=== PATIENT | female | born 1945 | race African-American/Black ===

== ENCOUNTER 2017-07-22 04:45 | Inpatient (IN) | payer OTHER, BC ==
[~2017-07-22] VITALS: Ht 152.4 cm; Wt 61.2 kg
--- NOTE | ~2017-07-22 | EKG ---
[address] [place] [address] ELECTROCARDIOGRAM REPORT Name: EPI MONTERO Room #: 170-1 ADM IN M.R.#: [id number] Admission: 07/22/17 Attend Phys: Julio C Amos DO Discharge: Date of : 47 Report #: [id number] THIS REPORT FOR: //name// 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 SORIANO : 1945 Requested By: Willian Castro Order Number: [id number] MD: Seven Kingston Measurements Intervals [place] Rate: 84 P: 62 WI: 148 QRS: -37 QRSD: 95 T: 60 QT: 415 QTc: 491 Interpretive Statements Sinus rhythm Ventricular premature complex Left atrial enlargement Left ventricular hypertrophy Inferior infarct, old Prolonged QT interval Compared to ECG 06/27/1997 09:13:00 Ventricular premature complex(es) now present Electronically Signed On 07-22-2017 8:42:38 CDT by Seven Kingston [email or web address] <ELECTRONICALLY SIGNED> By: Seven Kingston MD, [facility] 07/22/17 0842 0522 0522 Seven Kingston MD, [facility] /EPI
[2017-07-22 04:53] VITALS: BP 197/90
[2017-07-22] MEDS ORDERED: NORVASC5 MG PO (05:47)
[2017-07-22] MEDS ORDERED: PRAVACHOL40 MG PO (05:47)
[2017-07-22] MEDS ORDERED: GLIPIZIDE 10 MG10 MG PO (05:48)
[2017-07-22] MEDS ORDERED: NEPHROCAPS SOFT1 CAP PO (05:48)
[2017-07-22] MEDS ORDERED: ASPIRIN325 PO (05:48)
[2017-07-22] MEDS ORDERED: CARVEDILOL12.5 MG PO (05:49)
[2017-07-22] MEDS ORDERED: LISINOPRIL20 MG PO (05:49)
[2017-07-22] MEDS ORDERED: METFORMIN HCL500 MG PO (05:50)
[2017-07-22 05:52] LABS: URINE BILIRUBIN NEGATIVE (Negative); URINE BLOOD TRACE (Negative); URINE CLARITY SL CLOUDY; URINE COLOR YELLOW; URINE GLUCOSE-RANDOM* 3+ (Negative); URINE KETONES 1+ (Negative); URINE LEUKOCYTES-REFLEX NEGATIVE (Negative); URINE NITRITE-REFLEX NEGATIVE (Negative); URINE PROTEIN (DIPSTICK) 3+ (Negative); URINE SPECIFIC GRAVITY >= 1.030 (1.005-1.035); URINE UROBILINOGEN 0.2 E.U./dl (0.2-1.0)
[2017-07-22 06:02] LABS: AMORPHOUS URATES Moderate /LPF (None Seen); HYALINE CASTS 0-3 Few /LPF (None Seen)
[2017-07-22 06:03] LABS: BACTERIA-REFLEX 1-9 Few /HPF (None Seen); SQUAMOUS 0-3 Few /LPF (0-3); URINE RBC 3-10 Few /HPF (0-2); URINE WBC-REFLEX 0-5 Rare /HPF (0-5)
[2017-07-22 06:10] LABS: ABSOLUTE NEUTROPHILS 10.3 thou/uL (1.4-8.2); BASOPHILS 0.5 % (0.0-2.0); EOSINOPHILS 0.3 % (0.0-3.0); HEMATOCRIT 47.4 % (37.0-47.0); HEMOGLOBIN 15.8 gm/dL (12.0-15.0); LYMPHOCYTES 11.1 % (24.0-44.0); MCH 28.7 pg (26.0-34.0); MCHC 33.3 g/dL (28.0-37.0); MCV 86.3 fL (80.0-100.0); MONOCYTES 1.7 % (1.0-8.0); PLATELET COUNT 390 thou/uL (150-400); POLYS 86.4 % (36.0-66.0); RBC 5.49 mil/uL (4.20-5.00); RDW 14.8 % (10.5-14.5); WBC 11.9 thou/uL (4.0-11.0)
[2017-07-22 06:21] LABS: ANION GAP 10 mmol/L (7-16); BUN 19 mg/dL (7-18); CALCIUM 9.6 mg/dL (8.5-10.1); CHLORIDE 102 mmol/L (98-107); CO2 26 mmol/L (21-32); CREATININE 0.9 mg/dL (0.6-1.0); GLUCOSE 270 mg/dL (74-106); POTASSIUM 3.9 mmol/L (3.5-5.1); SODIUM 138 mmol/L (136-145)
[2017-07-22 06:30] LABS: ALBUMIN 3.3 g/dL (3.4-5.0); LIPASE 166 U/L (73-393); MAGNESIUM 1.6 mg/dL (1.8-2.4); SGOT 18 U/L (15-37); SGPT 25 U/L (30-65); TOTAL BILIRUBIN 0.3 mg/dL (<0.1-1.0); TOTAL PROTEIN 7.2 g/dL (6.4-8.2); TROPONIN-I < 0.04 ng/mL (<0.06)
[2017-07-22 07:34] VITALS: BP 183/86
[2017-07-22 08:57] VITALS: BP 163/84
[2017-07-22 10:09] VITALS: BP 169/74
[2017-07-22 16:26] VITALS: BP 197/76
[2017-07-22 19:44] VITALS: BP 178/90
[2017-07-23 04:18] VITALS: BP 159/76
[2017-07-23 08:29] VITALS: BP 178/53
[2017-07-23 15:46] VITALS: BP 136/61
[2017-07-23 20:39] VITALS: BP 138/53
[2017-07-24 04:21] VITALS: BP 177/80
[2017-07-24 08:08] VITALS: BP 167/74
[2017-07-24] MEDS ORDERED: KEFLEX500 M1 PO (08:30)
[2017-07-24 10:14] VITALS: BP 167/74
== END 2017-07-24 11:52 | disposition home or self-care (01) | DRG 690 ==
LOC: ER 04:45 → EROBS 07:15 → 4W 07:15
PROVIDERS: Emergency Medicine
DX: N39.0 Urinary tract infection, site not specified (principal); I10 Essential (primary) hypertension; I16.0 Hypertensive urgency; E11.65 Type 2 diabetes mellitus with hyperglycemia; K80.20 Calculus of gallbladder without cholecystitis without obstruction; F17.210 Nicotine dependence, cigarettes, uncomplicated; Z79.82 Long term (current) use of aspirin; Z79.84 Long term (current) use of oral hypoglycemic drugs; Z79.899 Other long term (current) drug therapy
CPT/HCPCS: 10045

== ENCOUNTER 2018-01-22 16:43 | Inpatient (IN) | payer OTHER, BC ==
[~2018-01-22] VITALS: Ht 152.4 cm; Wt 55.0 kg
--- NOTE | ~2018-01-22 | EKG ---
[address] [place] [address] ELECTROCARDIOGRAM REPORT Name: EPI MONTERO Room #: 170-1 ADM [place] M.R.#: [id number] Admission: 01/22/18 Attend Phys: Rosalio Fletcher MD Discharge: Date of : 47 Report #: [id number] THIS REPORT FOR: //name// [facility] ED Test Date: 2018-01-22 Test Time: 18:32:46 Pat Name: EPI MONTERO Department: Room: 170 Gender: F Front Desk Host: massimo : 1945 Requested By: Willian Castro Order Number: [id number] MD: Seven Kingston Measurements Intervals [place] Rate: 64 P: 37 [place]: 145 QRS: -40 QRSD: 99 T: 76 QT: 441 QTc: 455 Interpretive Statements Sinus rhythm Inferior infarct, old Compared to ECG 07/22/2017 05:22:53 Ventricular premature complex(es) no longer present Electronically Signed On 01-23-2018 9:24:02 CDT by Seven Kingston [email or web address] <ELECTRONICALLY SIGNED> By: Seven Kingston MD, [facility] 01/23/18 0924 31 31 Seven Kingston MD, [facility] /EPI
--- NOTE | ~2018-01-22 | 2DMMODE ---
[facility] [address] [place] [address] 2 D/M-MODE ECHOCARDIOGRAM Name: EPI MONTERO Room #: 463-P ADM IN M.R.#: [id number] Admission: 01/22/18 Attend Phys: Rosalio Fletcher MD Discharge: Date of : 47 Date of Service: 01/24/18 1554 Report #: [id number] THIS REPORT FOR: //name// APPROVED REPORT Study performed: 01/24/2018 14:31:35 EXAM: Comprehensive 2D, Doppler, and color-flow Echocardiogram Patient Location: Bedside Room #: 463 Status: routine BSA: 1.50 HR: 66 bpm BP: 188/102 mmHg Rhythm: NSR Other Information Study Quality: Adequate Indications Weakness/fall/near syncope. Hx: HTN, tob, DM 2D Dimensions RVDd: 28.69 mm IVSd: 10.48 (7-11mm) LVOT Diam: 20.16 (18-24mm) LVDd: 39.16 mm PWd: 8.65 (7-11mm) LVDs: 24.78 (25-40mm) Aortic Root: 32.73 mm Volumes Left Atrial Volume (Systole) Single Plane 4CH: 23.51 mL Single Plane 2CH: 28.81 mL LA ESV Index: 21.00 mL/m2 Aortic Valve AoV Peak Mansoor.: 1.00 m/s AO Peak Gr.: 4.03 mmHg LVOT Max P.38 mmHg LVOT Max V: 0.92 m/s MOLINA Vmax: 2.92 cm2 Mitral Valve E/A Ratio: 0.6 MV Decel. Time: 279.53 ms MV E Max Mansoor.: 0.82 m/s [facility] [place] [address] 2 D/M-MODE ECHOCARDIOGRAM Name: [facility] Room #: 463- ADM IN M.R.#: [id number] Admission: 01/22/18 Attend Phys: Rosalio Fletcher MD Discharge: Date of : 47 Date of Service: 01/24/18 1554 Report #: [id number] MV A Mansoor.: 1.36 m/s MV PHT: 81.06 ms IVRT: 73.82 ms Pulmonary Valve PV Peak Mansoor.: 0.85 m/s PV Peak Gr.: 2.91 mmHg Pulmonary Vein P Vein S: 0.60 m/s P Vein A: 0.31 m/s P Vein D: 0.28 m/s P Vein A Dur.: 87.7 msec P Vein S/D Ratio: 2.14 Tricuspid Valve TR Peak Mansoor.: 2.79 m/s RAP Estimate: 5.00 mmHg TR Peak Gr.: 31.15 mmHg PA Pressure: 35.00 mmHg Left Ventricle The left ventricle is normal size. There is normal LV segmental wall motion. Moderate basal septal hypertrophy is present. Left ventricular systolic function is normal. LVEF is 60-65%. Mild diastolic dysfunction is present (impaired relaxation pattern). Right Ventricle The right ventricle is normal size. The right ventricular systolic function is normal. Atria The left atrium size is normal. The right atrium size is normal. Aortic Valve Aortic valve leaflets are mildly thickened and calcified. No aortic regurgitation is present. There is no aortic valvular stenosis. Mitral Valve The mitral valve is normal in structure. Mild mitral annular calcification. There is no mitral valve regurgitation noted. No evidence of mitral valve stenosis. Tricuspid Valve The tricuspid valve is normal in structure. Mild tricuspid regurgitation. Estimated PAP is 35mmHg. [facility] [address] [place] [address] 2 D/M-MODE ECHOCARDIOGRAM Name: [facility] Room #: 463-P [facility] IN .R.#: [id number] Admission: 01/22/18 Attend Phys: Rosalio Fletcher MD Discharge: Date of : 47 Date of Service: 01/24/18 1554 Report #: [id number] Pulmonic Valve The pulmonary valve is normal in structure. Trace pulmonic regurgitation. Great Vessels The aortic root is normal in size. Ascending aorta is not well visualized. IVC is normal in size and collapses >50% with inspiration. Pericardium There is no pericardial effusion. <Conclusion> The left ventricle is normal size. LVEF is 60-65%. Aortic valve leaflets are mildly thickened and calcified. The mitral valve is normal in structure. Mild mitral annular calcification. The tricuspid valve is normal in structure. Mild tricuspid regurgitation. Estimated PAP is 35mmHg. The pulmonary valve is normal in structure. Trace pulmonic regurgitation. Ascending aorta is not well visualized. There is no pericardial effusion. <ELECTRONICALLY SIGNED> By: Yosi Morris MD 01/24/18 1554 1554 1554 Yosi Morris MD /INF
[~2018-01-22 16:43] MED LIST: ASPIRIN325 PO; CARVEDILOL12.5 MG PO; GLIPIZIDE 10 MG10 MG PO; KEFLEX500 M1 PO; LISINOPRIL20 MG PO; METFORMIN HCL500 MG PO; NEPHROCAPS SOFT1 CAP PO; NORVASC5 MG PO; PRAVACHOL40 MG PO
[2018-01-22 16:44] VITALS: BP 191/92
[2018-01-22 17:40] LABS: ABSOLUTE NEUTROPHILS 4.9 thou/uL (1.4-8.2); BASOPHILS 2.3 % (0.0-2.0); EOSINOPHILS 1.5 % (0.0-3.0); HEMATOCRIT 42.8 % (37.0-47.0); HEMOGLOBIN 14.4 gm/dL (12.0-15.0); LYMPHOCYTES 34.7 % (24.0-44.0); MCH 28.9 pg (26.0-34.0); MCHC 33.7 g/dL (28.0-37.0); MCV 85.9 fL (80.0-100.0); MONOCYTES 5.4 % (1.0-8.0); PLATELET COUNT 464 thou/uL (150-400); POLYS 56.1 % (36.0-66.0); RBC 4.98 mil/uL (4.20-5.00); RDW 14.5 % (10.5-14.5); WBC 8.8 thou/uL (4.0-11.0)
[2018-01-22 17:50] LABS: ANION GAP 8 mmol/L (7-16); BUN 16 mg/dL (7-18); CALCIUM 9.6 mg/dL (8.5-10.1); CHLORIDE 105 mmol/L (98-107); CO2 25 mmol/L (21-32); CREATININE 0.9 mg/dL (0.6-1.0); GLUCOSE 185 mg/dL (74-106); POTASSIUM 4.6 mmol/L (3.5-5.1); SODIUM 138 mmol/L (136-145)
[2018-01-22 17:58] LABS: ALBUMIN 3.1 g/dL (3.4-5.0); SGOT 13 U/L (15-37); SGPT 22 U/L (30-65); TOTAL BILIRUBIN 0.3 mg/dL (<0.1-1.0); TOTAL PROTEIN 6.9 g/dL (6.4-8.2); TROPONIN-I <0.06 ng/mL (<0.06)
[2018-01-22 19:21] LABS: URINE BILIRUBIN NEGATIVE (Negative); URINE BLOOD NEGATIVE (Negative); URINE CLARITY CLEAR; URINE COLOR YELLOW; URINE GLUCOSE-RANDOM* TRACE (Negative); URINE KETONES NEGATIVE (Negative); URINE LEUKOCYTES-REFLEX NEGATIVE (Negative); URINE NITRITE-REFLEX NEGATIVE (Negative); URINE PROTEIN (DIPSTICK) 2+ (Negative); URINE SPECIFIC GRAVITY >= 1.030 (1.005-1.035); URINE UROBILINOGEN 0.2 E.U./dl (0.2-1.0)
[2018-01-22 19:47] LABS: SQUAMOUS 0-3 Few /LPF (0-3)
[2018-01-22 19:48] LABS: BACTERIA-REFLEX None Seen /HPF (None Seen); CASTS None Seen /LPF (None Seen); CRYSTALS None Seen /LPF (None Seen); URINE RBC 0-2 Rare /HPF (0-2); URINE WBC-REFLEX 0-5 Rare /HPF (0-5)
[2018-01-22] MEDS ORDERED: ALPHAGAN P5 ML OPHTHALMIC (21:40)
[2018-01-22] MEDS ORDERED: ARICEPT 5 MG TAB5 MG PO (21:40)
[2018-01-22] MEDS ORDERED: REFRESH CLASSI1 EACH OPHTHALMIC (21:41)
[2018-01-22] MEDS ORDERED: FENOFIBRATE160 MG PO (21:42)
[2018-01-23 02:08] VITALS: BP 169/69
[2018-01-23 02:09] VITALS: BP 167/68; BP 169/69
[2018-01-23 03:00] VITALS: BP 184/76
[2018-01-23 04:56] LABS: ANION GAP 10 mmol/L (7-16); BUN 16 mg/dL (7-18); CALCIUM 9.3 mg/dL (8.5-10.1); CHLORIDE 105 mmol/L (98-107); CHOLESTEROL 208 mg/dL (<200); CO2 23 mmol/L (21-32); CREATININE 0.8 mg/dL (0.6-1.0); GLUCOSE 203 mg/dL (74-106); HDL CHOLESTEROL 58 mg/dL (>40); LDL CHOLESTEROL 132 mg/dL (<100); POTASSIUM 4.1 mmol/L (3.5-5.1); SODIUM 138 mmol/L (136-145); TC:HDL 3.6 Ratio (Not establshd); TRIGLYCERIDE 90 mg/dL (<150); VLDL 18 mg/dL (<40)
[2018-01-23 05:01] LABS: SERUM ASSESSMENT Clear
[2018-01-23 08:00] VITALS: BP 170/73
[2018-01-23 15:35] VITALS: BP 179/81
[2018-01-23 19:52] VITALS: BP 149/53
[2018-01-23 23:09] LABS: GLYCOHEMOGLOBIN (HGB A1C) 9.6 % (4.8-5.6)
[2018-01-24 05:01] VITALS: BP 153/122
[2018-01-24 08:22] VITALS: BP 189/102
[2018-01-24 17:17] VITALS: BP 180/82
[2018-01-25 03:56] VITALS: BP 151/73
[2018-01-25 06:08] LABS: ABSOLUTE NEUTROPHILS 5.4 thou/uL (1.4-8.2); BASOPHILS 0.3 % (0.0-2.0); EOSINOPHILS 2.4 % (0.0-3.0); HEMATOCRIT 41.4 % (37.0-47.0); HEMOGLOBIN 14.2 gm/dL (12.0-15.0); LYMPHOCYTES 29.9 % (24.0-44.0); MCH 29.2 pg (26.0-34.0); MCHC 34.3 g/dL (28.0-37.0); MCV 84.9 fL (80.0-100.0); MONOCYTES 7.7 % (1.0-8.0); PLATELET COUNT 458 thou/uL (150-400); POLYS 59.7 % (36.0-66.0); RBC 4.87 mil/uL (4.20-5.00); RDW 14.4 % (10.5-14.5); WBC 9.1 thou/uL (4.0-11.0)
[2018-01-25 06:12] LABS: CALCIUM 8.9 mg/dL (8.5-10.1); POTASSIUM 4.2 mmol/L (3.5-5.1)
[2018-01-25 07:45] VITALS: BP 149/77
[2018-01-25 16:00] VITALS: BP 161/80
[2018-01-25 19:38] VITALS: BP 167/75
[2018-01-26 04:17] VITALS: BP 184/90
[2018-01-26 05:04] LABS: ABSOLUTE NEUTROPHILS 5.5 thou/uL (1.4-8.2); BASOPHILS 0.9 % (0.0-2.0); EOSINOPHILS 4.4 % (0.0-3.0); HEMOGLOBIN 14.1 gm/dL (12.0-15.0); LYMPHOCYTES 32.4 % (24.0-44.0); MCH 28.5 pg (26.0-34.0); MCHC 32.8 g/dL (28.0-37.0); MONOCYTES 6.1 % (1.0-8.0); PLATELET COUNT 329 thou/uL (150-400); POLYS 56.2 % (36.0-66.0); RBC 4.94 mil/uL (4.20-5.00); RDW 14.5 % (10.5-14.5); WBC 9.7 thou/uL (4.0-11.0)
[2018-01-26 05:19] LABS: CALCIUM 9.2 mg/dL (8.5-10.1); CREATININE 0.8 mg/dL (0.6-1.0); POTASSIUM 4.4 mmol/L (3.5-5.1)
[2018-01-26 07:45] VITALS: BP 197/73
[2018-01-26 16:22] VITALS: BP 127/71
[2018-01-26 20:06] VITALS: BP 144/71
[2018-01-27 04:06] VITALS: BP 140/68
[2018-01-27 08:10] VITALS: BP 177/80
[2018-01-27 10:54] VITALS: BP 146/51
[2018-01-27 14:14] LABS: URINE BILIRUBIN NEGATIVE (Negative); URINE BLOOD NEGATIVE (Negative); URINE CLARITY CLEAR; URINE COLOR YELLOW; URINE GLUCOSE-RANDOM* TRACE (Negative); URINE KETONES NEGATIVE (Negative); URINE LEUKOCYTES-REFLEX NEGATIVE (Negative); URINE NITRITE-REFLEX NEGATIVE (Negative); URINE PROTEIN (DIPSTICK) 2+ (Negative); URINE SPECIFIC GRAVITY 1.025 (1.005-1.035)
[2018-01-27 14:22] LABS: CASTS None Seen /LPF (None Seen); SQUAMOUS 4-10 Moderate /LPF (0-3)
[2018-01-27 14:23] LABS: CRYSTALS None Seen /LPF (None Seen); URINE RBC None Seen /HPF (0-2); URINE WBC-REFLEX 0-5 Rare /HPF (0-5)
[2018-01-27 14:24] LABS: BACTERIA-REFLEX 1-9 Few /HPF (None Seen)
[2018-01-27 14:45] VITALS: BP 132/67
[2018-01-27 15:11] LABS: ABSOLUTE NEUTROPHILS 6.7 thou/uL (1.4-8.2); BASOPHILS 1.1 % (0.0-2.0); EOSINOPHILS 5.3 % (0.0-3.0); HEMATOCRIT 42.6 % (37.0-47.0); HEMOGLOBIN 14.2 gm/dL (12.0-15.0); LYMPHOCYTES 31.8 % (24.0-44.0); MCH 28.8 pg (26.0-34.0); MCHC 33.3 g/dL (28.0-37.0); MCV 86.5 fL (80.0-100.0); MONOCYTES 6.3 % (1.0-8.0); POLYS 55.5 % (36.0-66.0); RBC 4.92 mil/uL (4.20-5.00); RDW 14.3 % (10.5-14.5); WBC 13.4 thou/uL (4.0-11.0)
[2018-01-27 15:51] LABS: PLATELET COUNT 337 thou/uL (150-400)
== END 2018-01-27 19:12 | DRG 65 ==
LOC: ER 16:43 → EROBS 19:59 → 4W 19:59 → EROBS 19:59 → 4W 01-23 15:13
PROVIDERS: Emergency Medicine; Hospitalist; Nurse Practitioner Family
DX: I63.9 Cerebral infarction, unspecified (principal); F01.51 Vascular dementia, unspecified severity, with behavioral disturbance; R45.1 Restlessness and agitation; I10 Essential (primary) hypertension; E11.9 Type 2 diabetes mellitus without complications; E78.5 Hyperlipidemia, unspecified; F17.210 Nicotine dependence, cigarettes, uncomplicated; Z60.2 Problems related to living alone; M62.84 Sarcopenia; R41.0 Disorientation, unspecified; E83.42 Hypomagnesemia; Z28.21 Immunization not carried out because of patient refusal; Z88.8 Allergy status to other drugs, medicaments and biological substances; Z71.6 Tobacco abuse counseling; Z79.82 Long term (current) use of aspirin; Z79.899 Other long term (current) drug therapy
CPT/HCPCS: 10045

== ENCOUNTER 2019-01-10 09:22 | Inpatient (IN) | payer OTHER, BC ==
[~2019-01-10] VITALS: Ht 154.9 cm; Wt 48.1 kg
[~2019-01-10 09:22] MED LIST changes: +ALPHAGAN P5 ML OPHTHALMIC; +ARICEPT 5 MG TAB5 MG PO; +FENOFIBRATE160 MG PO; +REFRESH CLASSI1 EACH OPHTHALMIC
[2019-01-10 09:23] VITALS: BP 118/73
[2019-01-10 10:30] LABS: HEMATOCRIT 39.1 % (37.0-47.0); HEMOGLOBIN 12.7 gm/dL (12.0-15.0); MCH 26.9 pg (26.0-34.0); MCHC 32.4 g/dL (28.0-37.0); MCV 83.1 fL (80.0-100.0); RBC 4.71 mil/uL (4.20-5.00); RDW 15.1 % (10.5-14.5)
[2019-01-10 10:40] LABS: ANION GAP 10 mmol/L (7-16); BUN 34 mg/dL (7-18); CALCIUM 9.9 mg/dL (8.5-10.1); CHLORIDE 99 mmol/L (98-107); CO2 28 mmol/L (21-32); CREATININE 1.2 mg/dL (0.6-1.0); GLUCOSE 373 mg/dL (74-106); SODIUM 137 mmol/L (136-145)
[2019-01-10 10:48] LABS: TROPONIN-I <0.06 ng/mL (<0.06)
[2019-01-10 10:49] LABS: URINE BILIRUBIN NEGATIVE (Negative); URINE BLOOD NEGATIVE (Negative); URINE CLARITY CLEAR; URINE COLOR YELLOW; URINE GLUCOSE-RANDOM* 3+ (Negative); URINE KETONES NEGATIVE (Negative); URINE LEUKOCYTES-REFLEX NEGATIVE (Negative); URINE NITRITE-REFLEX NEGATIVE (Negative); URINE PROTEIN (DIPSTICK) NEGATIVE (Negative); URINE SPECIFIC GRAVITY 1.015 (1.005-1.035); URINE UROBILINOGEN 0.2 E.U./dl (0.2-1.0)
[2019-01-10 13:35] VITALS: BP 131/62
[2019-01-10 14:23] LABS: FOLIC ACID 9.5 ng/mL (8.6-58.9); TSH 0.671 uIU/mL (0.358-3.740)
--- NOTE | 2019-01-10 17:03 | NUR ---
ASSUMMED PT CARE AT APPROXIMATELY 1500. PT AWAKE AND ORIENTED X3. PT C HX OF DEMENTIA. PT DENIES HAVING CHEST PAIN. PT DENIES HAVING SOB. PT IS UNSTEADY WHEN STANDING UP AND IN BED SITTING UP. ADMISSION COMPLETE. PT ARRIVED TO UNIT WITHOUT FRIEND OR SPOUSE. PT EDUCATED ABOUT POC. PT STATED UNDERSTANDING AND DENIED HAVING FURTHER QUESTIONS. VITAL SIGNS STABLE. BLOOD SUGARS STABLE. PT COMFORTABLE IN BED. FALL PRECAUTIONS IN PLACE. ASSESSMENT CHARTED. PT DENIES HAVING FURTHER CONCERNS.
[2019-01-10 19:45] VITALS: BP 120/73
[2019-01-10 23:10] LABS: GLYCOHEMOGLOBIN (HGB A1C) 12.1 % (4.8-5.6)
[2019-01-11 04:28] VITALS: BP 156/78
[2019-01-11 04:37] VITALS: BP 120/71
[2019-01-11 05:37] LABS: ABSOLUTE NEUTROPHILS 7.7 thou/uL (1.4-8.2); BASOPHILS 0.2 % (0.0-2.0); EOSINOPHILS 1.1 % (0.0-3.0); HEMATOCRIT 32.7 % (37.0-47.0); LYMPHOCYTES 23.1 % (24.0-44.0); MCH 26.7 pg (26.0-34.0); MCHC 32.3 g/dL (28.0-37.0); MCV 82.6 fL (80.0-100.0); MONOCYTES 5.5 % (1.0-8.0); PLATELET COUNT 477 thou/uL (150-400); POLYS 70.1 % (36.0-66.0); RBC 3.96 mil/uL (4.20-5.00); RDW 14.4 % (10.5-14.5)
[2019-01-11 05:52] LABS: CALCIUM 8.4 mg/dL (8.5-10.1); CREATININE 0.9 mg/dL (0.6-1.0); MAGNESIUM 1.4 mg/dL (1.8-2.4); POTASSIUM 3.2 mmol/L (3.5-5.1)
[2019-01-11 05:56] LABS: HEMOGLOBIN 10.6 gm/dL (12.0-15.0)
[2019-01-11 07:49] VITALS: BP 146/73
--- NOTE | 2019-01-11 08:21 | NUR ---
ASSUME CARE 1900. PT/VITALS STABLE. INTERMITTENT BACK AD RIGHT KNEE PAIN. PT IS VERY CONFUSED AND FREQUENTLY TEARFUL.A/O TO PERSON ONLY. NO REST NOTED TONIGHT FREQUENT CHECKS ON PATIENT. PLAN IS FOR ENDO TO MONITOR BLOOD SUGAR LEVELS, AND SW FOR DISCHARGE PLANNING. WILL CONTINUE TO MONITOR AND FOLLOW WITH POC
--- NOTE | 2019-01-11 09:12 | EKG ---
[address] [place] [address] ELECTROCARDIOGRAM REPORT Name: EPI MONTERO Room #: 217-P ADM IN M.R.#: [id number] Admission: 01/10/19 Attend Phys: Guanakito Abel MD Discharge: Date of : 47 Report #: [id number] THIS REPORT FOR: //name// [facility] ED Test Date: 2019-01-10 Test Time: 10:27:51 Pat Name: EPI MONTERO Department: Room: 217 Gender: F Towerman: JOELLE : 1945 Requested By: Chance Gomez Order Number: [id number] MD: Seven Kingston Measurements Intervals [place] Rate: 61 P: 65 MT: 162 QRS: 0 QRSD: 114 T: 94 QT: 436 QTc: 440 Interpretive Statements Sinus rhythm Ventricular premature complex Inferior infarct, old Compared to ECG 01/22/2018 18:32:46 Ventricular premature complex(es) now present Electronically Signed On 01-11-2019 9:12:28 CDT by Seven Kingston [email or web address] <ELECTRONICALLY SIGNED> By: Seven Kingston MD, [facility] 01/11/19 0912 1027 102 Seven Kingston MD, [facility] /EPI
[2019-01-11 11:10] VITALS: BP 131/45
--- NOTE | 2019-01-11 12:07 | NUR ---
Met with patient with patient who has some confusion. She reports she lives at home with Mario who is s/o for many years. She reports mario also under the weather. She reports uses a walker for ambulation and multiple steps in home. Her PCP is Dr DELGADO. She reports Mario is the cdl driver. Patient appears disheveled with overgrown nails. Discussed likely need for post acute care and patient reports she has been at [facility] in past and agreeable to referral. Called Marios cell phone. On home phone cannot leave a message.
--- NOTE | 2019-01-11 13:53 | NUR ---
FAXED REFERRAL TO [facility] SPOKE WITH KESHIA IN ADM SHE RECEIVED REFERRAL AND WILL REVIEW. DP TO FOLLOW.
--- NOTE | 2019-01-11 15:17 | NUR ---
have called s/o Bj rodriguez twice today.
[2019-01-11 17:11] VITALS: BP 135/55
--- NOTE | 2019-01-11 19:01 | NUR ---
RECEIVED PT'S CARE AROUND 0735; PT. ON BED; ALERT TO PERSON; CONFUSED; CHECK CHARTING; EXPLAINED IN THE HOSPITAL; CRYING; EXPLAINED REASONS IN THE HOSPITAL; DURING ASSESSMENT C/O BACK PAIN; PRN PAIN MEDICATION GIVEN; RE-ASSESSMENT PT. SLEEPING; EARLY ON THE EVENING PT. IRRITABLE; UNCOOPERATIVE; REFUSED EVENING MEDICATIONS; SHOUT "I DO NOT WANT ANY MEDICATION"; "DO NOT GIVE ME ANY MEDICATION"; REFUSED DINNER; MONITORING; ASSESSMENT CHARGED; FOLLOWING POC; WILL PASS ON REPORT.
[2019-01-11 22:05] VITALS: BP 161/84
[2019-01-12 04:55] VITALS: BP 141/58
[2019-01-12 06:07] LABS: HEMATOCRIT 30.3 % (37.0-47.0); HEMOGLOBIN 9.9 gm/dL (12.0-15.0); MCH 26.8 pg (26.0-34.0); MCHC 32.8 g/dL (28.0-37.0); MCV 81.9 fL (80.0-100.0); RBC 3.69 mil/uL (4.20-5.00); RDW 14.8 % (10.5-14.5); WBC 9.2 thou/uL (4.0-11.0)
[2019-01-12 06:13] LABS: CALCIUM 8.6 mg/dL (8.5-10.1); CREATININE 0.8 mg/dL (0.6-1.0); POTASSIUM 3.1 mmol/L (3.5-5.1)
--- NOTE | 2019-01-12 07:07 | HC ---
[facility] [place] [address] [place] [address] CONSULTATION Name: MONTEROEPI Room #: 217-P [facility] IN M.R.#: [id number] Admission: 01/10/19 Attend Phys: Guanakito Abel MD Discharge: Date of : 47 Report #: [id number] THIS REPORT FOR: //name// CC: Brett Abel DATE OF SERVICE: 01/11/2019 ENDOCRINE CONSULTATION NOTE CONSULTING PHYSICIAN: Dr. Abel. REASON FOR CONSULTATION: Uncontrolled type 2 diabetes mellitus. HISTORY OF PRESENT ILLNESS: This is a 73-year-old female patient with a past medical background is known for type 2 diabetes mellitus, hypertension, hyperlipidemia as well as dementia. It appears that the patient was brought into [facility]'s ED by a friend who was concerned about her inability to care for herself as well as reports of frequent falls. When I asked the patient who was alone in her room today about her history of diabetes, she was rather sketchy. She was not sure how long she had diabetes for, she could not specify what specific or what antidiabetic medicines she was on at home. When asked about blood sugar monitoring, she said that she did try for a while, but then did not and was not able to provide specific blood glucose data as well. However, does not seem that she has issues with hypoglycemia. The patient denied having dealt with problems of diabetic retinopathy, nephropathy or neuropathy in the past. Having reviewed the patient's chart and she had metformin 500 mg b.i.d. listed as one of her medications. Also, the patient is known to have hypertension and hyperlipidemia and therapy with pravastatin, amlodipine, carvedilol and lisinopril as well as fenofibrate. REVIEW OF SYSTEMS: CONSTITUTIONAL: The patient admits to having been a bit fatigued, tired, but with poor appetite, but denies significant body weight changes. HEENT: Negative for sore throat, ear pain or ear drainage. PULMONARY: Occasional shortness of breath and cough, but no hemoptysis. CARDIAC: Negative for chest pain, palpitations, syncope or presyncope. GASTROINTESTINAL: Noted for occasional abdominal discomfort, occasional nausea, but no vomiting or hematemesis. NEUROLOGY: The patient describes bouts of lightheadedness and dizziness, but not colten syncope, she alluded to the fact that she had lost her balance a few times. PSYCHIATRY: She denies depression, agitation or anxiety. [address] [address] CONSULTATION Name: [facility] Room #: 217-P [facility] IN ..#: [id number] Admission: 01/10/19 Attend Phys: Guanakito Abel MD Discharge: Date of : 47 Report #: [id number] SKIN: No rash, ulceration, or other major abnormalities. Otherwise, review of systems noncontributory other than those mentioned in HPI. PAST MEDICAL HISTORY: 1. Type 2 diabetes mellitus. 2. Hypertension. 3. Hyperlipidemia. 4. Dementia. 5. Frequent falls. ALLERGIES: STATINS ARE LISTED ALLERGY. REPORTED OUTPATIENT MEDICATIONS: Pravastatin 20 mg daily, amlodipine 10 mg daily, aspirin 325 mg daily, carvedilol 12.5 mg b.i.d., metformin 500 mg b.i.d., lisinopril 40 mg daily, Aricept 5 mg daily, Alphagan 10 mL ophthalmic b.i.d., fenofibrate 160 mg daily. FAMILY HISTORY: Noncontributory. SOCIAL HISTORY: The patient is an active daily smoker. Denies use of alcohol or illicit drugs. PHYSICAL EXAMINATION: GENERAL: This is an elderly -Maltese female patient who is not in apparent pain or distress. She seems comfortable, not in pain or distress. VITAL SIGNS: Blood pressure is 146/73 mmHg, heart rate is 72 beats per minute, respirations 16 per minute, temperature 36.9 degrees. CONSTITUTIONAL: She appears comfortable, not in apparent distress. HEENT: Anicteric sclerae. Intact extraocular motions. NECK: Supple, without JVD, carotid bruits or lymphadenopathy. I do not appreciate thyromegaly. CHEST: Noted for moderate air entry bilaterally. No crackles or wheezes. HEART: Regular rate and rhythm without murmurs or gallops. ABDOMEN: Soft and lax without tenderness or organomegaly. She has active bowel sounds. EXTREMITIES: Lower extremity exam is negative for ankle edema. No skin breaks, ulcerations or other deformities. NEUROLOGIC: Awake, alert and with a broadly nonfocal exam. PSYCHIATRIC: Pleasant, comfortable, not agitated, seems to have a normal mood and affect. SKIN: Negative for ulceration, rashes or discolorations or other major findings. LABORATORY DATA: Blood glucose has consistently run over 240 mg/dL. Otherwise, sodium is 136, potassium 3.2, chloride 102, CO2 of 24, anion gap 10, BUN 20, creatinine 0.9, glucose 271. AST 13, lipase 166, calcium 8.4, magnesium 1.4, [facility] [address] [place] [address] CONSULTATION Name: EPI MONTERO Room #: 217-P ADM IN Naz.#: [id number] Admission: 01/10/19 Attend Phys: Guanakito Abel MD Discharge: Date of : 47 Report #: [id number] alkaline phosphatase 96, ALT 22, total protein 6.9, albumin 3.1, GFR 75. Troponin is undetectable. Total cholesterol 208, triglycerides 90, HDL 58, LDL 132. White blood count 11, hemoglobin 10.6, hematocrit 32.7, and platelets 477. TSH is 0.671. Hemoglobin A1c 12.1. ASSESSMENT AND PLAN: 1. Type 2 diabetes mellitus. This is uncontrolled on the account of her recorded hemoglobin A1c of 12.1% as well as on the basis of the recorded blood glucose values while she was here. Unfortunately, the patient is unable to provide a meaningful insight into her outlook in the past few to several months, but her hemoglobin A1c sure indicates an outlook of long-term loss of control. The good news is the patient does not seem to have major renal insufficiency and possibly this is noted for only stage 2 chronic kidney disease, which enabled wide range of oral therapeutic options. At the current level of hyperglycemia, I believe it would be reasonable to get started with metformin 500 mg b.i.d. in addition to linagliptin 5 mg daily. It would be favorable if we could control her blood glucose values utilizing a regimen that is both ECT use, accessible, and not associated with hypoglycemia. For added coverage, the patient will be provided with Humalog low intensity sliding scale and blood glucose monitoring will commence a.c. and at bedtime. 2. Hyperlipidemia. The patient has uncontrolled hyperlipidemia with an LDL cholesterol target of 70 mg/dL in mind. That said, the patient has a STATINS LISTED AN ALLERGY. Therefore, I will head towards using ezetimibe 10 mg daily. 2. Hypertension. The patient's level of blood pressure control is adequate. She can continue the current regimen. I certainly appreciate this consultation by Dr. Abel. <ELECTRONICALLY SIGNED> By: Raji Feldman MD 01/12/19 0707 1015 0059 Raji Feldman MD /nt
[2019-01-12 08:14] VITALS: BP 156/72
--- NOTE | 2019-01-12 08:20 | NUR ---
assume care 1900. PT CONFUSED. A/O TO PERSON, BUIT COOPERATIVE. INTERMITTENT BACK PAIN NOTED WITH RELIEF FROM TYLENOL. ASSESSMENT CHARTED. MODERATE REST NOTED THROUGH THE NIGHT. SR ON MONITOR. PROGRESING WELL WITH POC. PLAN IS TO CONTINUE TO MONITOR LEVEL OF CONCIOUSNESS AND OVERALL HEALT. WILL CONTINUE TO MONITOR AND FOLLOW WITH POC
[2019-01-12 11:48] VITALS: BP 116/58
--- NOTE | 2019-01-12 16:15 | NUR ---
Event Planner spoke with the pt at bedside and her sign other/dpoa Ray via phone. 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 He can no longer manage her care at home. The pt is a&ox3 but forgetful and looses her train of thought. She reports that Ray is her sign other of 20+ years and he his her dpoa. She reports her " gson" Holger Sher lives in [place] and he her alternate dpoa. She does not have his number. Claudio was vague about providing Holger's number as well as he is in [place]. He will bring in a copy of the dpoa document and he is aware that he will need to work with the residential regarding their finances and possible medicaid application. Pt's friend Farhana Cleveland (Mirvena) also called to place a concern about the pt's home enviornment and whether Ray is able to care for the pt in the home. She has known the pt for over 50 years and she has never see the pt's home in such poor condition. [facility] number provided. She does not have Holger's number either. [facility] can not accept the pt. [facility]klin and [facility] Langford in [place] are reviewing the referral. Pt would benefit from therapy but would need to be hotlined if she dc'd to back home. Ray and the pt both indicate that Claudio is also struggling with cancer treatment and is not able to be home with her all of the time.
--- NOTE | 2019-01-12 16:28 | NUR ---
FAXED REFERRAL TO [facility] SPOKE WITH OLIVER IN ADM SHE RECEIVED REFERRAL AND WILL DO A BEDSIDE VISIT WITH PT TODAY. FAXED REFERRAL TO [facility]. LEFT MSG WITH ADM (JESSI) TO REVIEW AND POSS DC OVER WEEKEND. DP TO FOLLOW.
[2019-01-12 17:29] VITALS: BP 118/89
--- NOTE | 2019-01-12 19:45 | NUR ---
RECEIVED PT'S CARE AROUND 0700; PT. ON BED RESTING; DURING ASSESSMENT PT. ALERT TO PERSON; C/O PAIN WHEN TURNING FROM SIDE TO SIDE; AM MEDICATIONS GIVEN; PT. ABLE TO HAVE MEALS AFTER SETTING UP; CHECK CHARTING; PT. RESTING WITH EYES CLOSE THROUGH THE DAY; HAD BM EARLY ON THE NIGHT; AROUND 1700 VISITOR AT THE BED SIDE; ASSESSMENT CHARGED; FOLLOWING POC; PASSED ON REPORT;
--- NOTE | 2019-01-12 23:15 | NUR ---
ASSUMED PT CARE AT 1900. VSS. PT A&0 TO SELF. ASSESSMENTS AND MEDS GIVEN ARE DOCUMENTED. SOFT KNOT NOTICED ON HER LEFT CALF, PT STATED THAT IT HURTS. PT STATUS CHANGED TO MS, REPORT CALLED TO 4W NURSE, PT TRANSFERED TO 4W.
[2019-01-13 05:15] VITALS: BP 139/44
[2019-01-13 07:25] VITALS: BP 141/72
--- NOTE | 2019-01-13 07:58 | NUR ---
progress pt transferred to room 452 from icu. Pt was admitted for repeated falls, christiano, and dementia, and self care deficit. Pt oriented to self only, just cries and states she doesn't know anything and nobody will tell her where she is. Very anxious rocking back and forth in bed. C/o burning to right eye, eye red and tearing, flushed with saline redness dissipated pt settled down but still states it donohue. incontinent x 1, had a bn 01/12. has pt and ot ordered continue poc.
[2019-01-13 13:56] LABS: HEMATOCRIT 31.4 % (37.0-47.0); HEMOGLOBIN 10.2 gm/dL (12.0-15.0); MCH 26.8 pg (26.0-34.0); MCHC 32.4 g/dL (28.0-37.0); MCV 82.9 fL (80.0-100.0); RBC 3.79 mil/uL (4.20-5.00); RDW 15.1 % (10.5-14.5); WBC 9.1 thou/uL (4.0-11.0)
[2019-01-13 14:05] LABS: CALCIUM 8.8 mg/dL (8.5-10.1); CREATININE 0.9 mg/dL (0.6-1.0); MAGNESIUM 1.6 mg/dL (1.8-2.4); POTASSIUM 3.7 mmol/L (3.5-5.1)
[2019-01-13 14:52] VITALS: BP 140/64
--- NOTE | 2019-01-13 19:39 | NUR ---
Assumed pt care this am, pt is conlfused and very forgetful. VS have been stable, was able to console the pt, frequent redirection and conversations / visits done through out the shift. Pt is incontinent but able to turn on hger own and when and requested for fay care. P needs assistance with meals fo redirections. Supplements were ot all taken . POC followed no signs or verbalizatios o0f distress have been noted.
[2019-01-13 19:40] VITALS: BP 140/73
--- NOTE | 2019-01-14 04:03 | NUR ---
ASSUMED CARE AROUND 1900. AXOX2. CAN BE VERY EMOTIONAL ABOUT BEING LEFT ALONE. FREUQNET VISUAL CHECKS RENDERED TO ACCOMODATE NEEDS. NO S/S ACUTE DISTRESS NOTED OR REPORTED AT THIS TIME. WILL CONT TO MONITOR FOR ANY CHANGES IN CONDITION.
[2019-01-14 07:32] VITALS: BP 167/63
[2019-01-14 11:55] VITALS: BP 133/61
--- NOTE | 2019-01-14 15:06 | NUR ---
Assumed pt care this am, still confused but not an tearful as yesterday. Pt is incontinent of bladder but does attmept to call, cleansing lotion bath and fay care done in the am. Pt stayed on the recliner and had lunch on her own with minimal assistance, went back to bed mid afternoon. Frequent monitoring and visits done, hydration encouraged. POC followed no signs or verbalizations of distress have been noted.
[2019-01-14 15:15] VITALS: BP 149/77
[2019-01-14 19:02] VITALS: BP 128/58
--- NOTE | 2019-01-15 03:34 | NUR ---
ASSUMED PT CARE AT 1900.PT IS A/O TO SELF AND FORGETFUL AND CONFUSE.PT IS UP WITH SBA.ACCU CHECKS DONE .PT COMPLAIN OF PAIN AND WAS ADM TYLENOL AND GIVE ICE PACK FOR FOOT PAIN WITH RELIEF.PT HAD A LARGE BM LAST NIGHT.PT IS UP TO BSC.CONTINUE POC
[2019-01-15 05:31] LABS: ABSOLUTE NEUTROPHILS 5.3 thou/uL (1.4-8.2); EOSINOPHILS 1.4 % (0.0-3.0); HEMATOCRIT 29.3 % (37.0-47.0); HEMOGLOBIN 9.6 gm/dL (12.0-15.0); LYMPHOCYTES 32.8 % (24.0-44.0); MCH 27.1 pg (26.0-34.0); MCHC 32.8 g/dL (28.0-37.0); MCV 82.5 fL (80.0-100.0); MONOCYTES 6.9 % (1.0-8.0); PLATELET COUNT 402 thou/uL (150-400); POLYS 57.9 % (36.0-66.0); RBC 3.55 mil/uL (4.20-5.00); RDW 14.9 % (10.5-14.5); WBC 9.1 thou/uL (4.0-11.0)
[2019-01-15 05:47] LABS: ALBUMIN 2.6 g/dL (3.4-5.0); CALCIUM 8.5 mg/dL (8.5-10.1); CREATININE 0.9 mg/dL (0.6-1.0); MAGNESIUM 1.6 mg/dL (1.8-2.4); PHOSPHORUS 2.9 mg/dL (2.5-4.9); TOTAL BILIRUBIN 0.2 mg/dL (<0.1-1.0); TOTAL PROTEIN 5.8 g/dL (6.4-8.2)
[2019-01-15 07:35] VITALS: BP 128/62
[2019-01-15] MEDS ORDERED: ZETIA10 MG PO (11:54)
[2019-01-15] MEDS ORDERED: TRADJENTA5 MG PO (11:55)
[2019-01-15] MEDS ORDERED: HUMALOG100 UNIT/1 SUBQ (11:56)
[2019-01-15 15:25] VITALS: BP 157/80
--- NOTE | 2019-01-15 16:06 | NUR ---
Assumed patient care at 0715. Patient has been pleasantly inappropriate at times. She is cooperative will all tests and treatments. Patient has been alert to self only. Patient noted to be taking Atorvastatin; records show that she has an allergy to Statins (she has had no adverse reactions, no rash, no SOB, ect). Vital signs have been stable. Food and fluid intake has been adequate. She has been refusing her Supplemental Nutrition drinks. Blood sugar at 0748 was 149, it was 152 at 1212. IV is in left anticubital area, patent. Patient is incontinent and has been cleaned/changed accordingly. Will continue to monitor.
--- NOTE | 2019-01-15 16:09 | NUR ---
[facility] INDICATED THAT LONG PT HAS HAD 60 DAYS WELLNESS PERIOD THAT THEY WOULD BE ABLE TO ACCEPT PT FOR SKILLED STAY. CM HAD CALL OUT PT'S PT'S SO MR. CHATTERJEE TO CONFIRM PT IS A POOR HISTORIAN. OUT RECORDS DON'T INDICATED A RECENT HOSPITALIZATION. CM TO FOLLOW INDICATED WITH DC PLANNING.
[2019-01-16 04:32] VITALS: BP 149/62
--- NOTE | 2019-01-16 05:52 | NUR ---
Pt. has rested quietly at short intervals during the night when checked on during frequent rounds. She has been oriented to self only and irritable at times. She has attempted to get up out of bed without calling for assistance. She feels like she is in long term being the bed. Oriented to place and time. She became upset and voiced I know where I am, although she wanted to pay her electric bill and get in her car. Pt. has been toileted during the shift to the bedside comode. Bed alarm is on.
[2019-01-16 08:01] VITALS: BP 128/63
--- NOTE | 2019-01-16 10:28 | NUR ---
Pt vitamin D level is 17.2 -needs supplementation
[2019-01-16 14:30] VITALS: BP 132/65
--- NOTE | 2019-01-16 16:11 | NUR ---
Assumed patient care at 0715. Patient has been agitated and anxious , trying to get out of bed several times. She will calm with encouraging, soothing communication. Patient is compliant with her medications and treatments. has been at bedside this afternoon which also helps to calm her. Patient is alert and oriented x's two. Patient's vital signs have been stable. Blood sugars have been as follows: 105 at 0856 and 129 at 1210. IV in left ac is saline locked. She has started on new pudding supplements because she did not like like Ensure Shakes; she is not eating much of these either. Client is currently napping in bed. Will continue to monitor.
--- NOTE | 2019-01-16 16:14 | NUR ---
[facility] INDICATED THAT THEY ARE ABLE TO ACCEPT PT. CM CALLED AND HASN'T RECIEVED RETURN PHONE CALL FROM PT'S SIG OTHER/BREONNA CHATTERJEE. ANTICIPATE DC TO [facility] SOON SIG OTHER CAN BE REACHED. PHONE: FAX: [facility]:
[2019-01-16 22:35] VITALS: BP 160/80
--- NOTE | 2019-01-17 04:07 | NUR ---
pt is alert to self an place.pt is confuse and forgetful'pt is awaiting placement to snf.pt has scds on and slept most part of the night.up with x2 assist to bsc.continue to monitor till end of shift.
[2019-01-17 07:09] VITALS: BP 152/81
[2019-01-17 08:28] VITALS: BP 152/81
--- NOTE | 2019-01-17 13:43 | NUR ---
DISCHARGE ORDERS COMPLETED PER ATTENDING. PATIENT DISCHARGING TO [facility]. CHART COPY COMPLETED PER DENSITOMETRIST. [facility] ORD[facility] AND [facility], VERIFIED RECEIVED. TRANSPORTATION ARRANGED PER [facility], 1600 HOURS. SIGNIFICANT OTHER NOTIFIED OF DISCHARGE PLAN AND TRANSPORTATION PER UNIT SW, AGREEABLE TO ALL. CONTACT NUMBER FOR REPORT PROVIDED FOR NURSE TO NURSE REPORT.
--- NOTE | 2019-01-17 14:19 | NUR ---
CM SPOKE WITH PT'S SIG OTEHR OVER THE PHONE THIS AM. CM INDICATED THAT PT HAD BEEN ACCEPTED FOR ADMISSION TO [facility] AND THAT THEY ARE ABLE TO PICK PT UP BETWEEN [phone]. HE INDICATED THAT HE HAD WANTED TO TOUR PLACES FIRST. CM INDICATED THAT CM HAD BEEN TRYING TO GET A HOLD OF PT BY PHONE AND THAT HE HADN'T RETURNED ANY MESSAGES. CM INDICATED THAT CARE TEAM HAS RECOMMENDED POST ACUTE CARE STAY AND THAT PT SHOULD HAVE 24/7 SUPERVISON. SIG OTHER INDICATED THAT HE HADN'T BEEN LEAVING PT ALONE AND THAT HE WAS AGREEABLE WITH PT GOING TO A FEW WEEKS BUT GOAL WOULD BE FOR PT TO RETURN HOME IF SHE IS ABLE. SIG OTHER AGREEABLE WITH PT'S DISCHARGING TO [facility] TODAY TRANSPORT ARRANGED FOR 1600 [address] [facility]. CM COMPLETED [id number]. CHART COPY ORDERED. ORDERES FAXED. REPORT CALLED. NO OTHER CM INTERVENTION INDICATED. CASE CLOSED.
--- NOTE | 2019-01-17 14:58 | NUR ---
Assumed pt care this am, vs stable. FAll risk in place. Pt still confused but is easily reoriented. Spouse at the bedside. Pt needs to be assisted when eating and encouraged to finish her suppliment (ensure pudding). POC followed , no signs or verbalizatons of istress have been noted. Report called out to Mis Rosa Maria, awaiting leaf size picker at 4pm, IV removed.
== END 2019-01-17 18:09 | DRG 637 ==
LOC: ER 09:22 → EROBS 12:40 → 2N 12:40 → 4W 12:40 → 2N 14:44 → 4W 01-12 23:17
PROVIDERS: Emergency Medicine; Internal Medicine; Nurse Practitioner; ADMIT Hospitalist
DX: E11.65 Type 2 diabetes mellitus with hyperglycemia (principal); N17.0 Acute kidney failure with tubular necrosis; E44.0 Moderate protein-calorie malnutrition; N17.9 Acute kidney failure, unspecified; I10 Essential (primary) hypertension; E78.5 Hyperlipidemia, unspecified; F03.90 Unspecified dementia, unspecified severity, without behavioral disturbance, psychotic disturbance, mood disturbance, and anxiety; F17.210 Nicotine dependence, cigarettes, uncomplicated; E55.9 Vitamin D deficiency, unspecified; D63.8 Anemia in other chronic diseases classified elsewhere; Z79.82 Long term (current) use of aspirin; Z79.899 Other long term (current) drug therapy; Z68.20 Body mass index [BMI] 20.0-20.9, adult; Z71.6 Tobacco abuse counseling; Z23 Encounter for immunization
CPT/HCPCS: 10047; 10081

== ENCOUNTER 2019-03-29 15:37 | Emergency (ER) | payer OTHER, BC ==
[~2019-03-29] VITALS: Ht 152.4 cm; Wt 65.8 kg
[~2019-03-29 15:37] MED LIST changes: +HUMALOG100 UNIT/1 SUBQ; +TRADJENTA5 MG PO; +ZETIA10 MG PO
[2019-03-29 16:04] LABS: URINE BILIRUBIN NEGATIVE (Negative); URINE BLOOD NEGATIVE (Negative); URINE CLARITY CLEAR; URINE COLOR YELLOW; URINE GLUCOSE-RANDOM* 3+ (Negative); URINE KETONES NEGATIVE (Negative); URINE LEUKOCYTES-REFLEX NEGATIVE (Negative); URINE NITRITE-REFLEX NEGATIVE (Negative); URINE PROTEIN (DIPSTICK) NEGATIVE (Negative); URINE SPECIFIC GRAVITY 1.015 (1.005-1.035); URINE UROBILINOGEN 0.2 E.U./dl (0.2-1.0)
[2019-03-29 16:12] LABS: ABSOLUTE NEUTROPHILS 8.3 thou/uL (1.4-8.2); BASOPHILS 1.1 % (0.0-2.0); EOSINOPHILS 0.9 % (0.0-3.0); HEMATOCRIT 37.9 % (37.0-47.0); HEMOGLOBIN 11.9 gm/dL (12.0-15.0); LYMPHOCYTES 15.7 % (24.0-44.0); MCH 25.2 pg (26.0-34.0); MCHC 31.4 g/dL (28.0-37.0); MCV 80.2 fL (80.0-100.0); MONOCYTES 4.1 % (1.0-8.0); PLATELET COUNT 480 thou/uL (150-400); POLYS 78.2 % (36.0-66.0); RBC 4.72 mil/uL (4.20-5.00); RDW 16.2 % (10.5-14.5); WBC 10.6 thou/uL (4.0-11.0)
[2019-03-29 16:25] LABS: ANION GAP 8 mmol/L (7-16); BUN 14 mg/dL (7-18); CALCIUM 9.9 mg/dL (8.5-10.1); CHLORIDE 104 mmol/L (98-107); CO2 27 mmol/L (21-32); CREATININE 0.9 mg/dL (0.6-1.0); GLUCOSE 385 mg/dL (74-106); POTASSIUM 5.4 mmol/L (3.5-5.1); SODIUM 139 mmol/L (136-145)
[2019-03-29 16:37] LABS: ALBUMIN 3.7 g/dL (3.4-5.0); LIPASE 205 U/L (73-393); MAGNESIUM 1.8 mg/dL (1.8-2.4); SGOT 25 U/L (15-37); SGPT 26 U/L (30-65); TOTAL BILIRUBIN 0.3 mg/dL (<0.1-1.0); TROPONIN-I <0.06 ng/mL (<0.06)
[2019-03-29 21:51] VITALS: BP 147/88
--- NOTE | 2019-03-30 13:04 | EKG ---
[facility] [place] [address] ELECTROCARDIOGRAM REPORT Name: MONTEROEPI Room #: LAURE Child#: [id number] Admission: 03/29/19 Attend Phys: Discharge: Date of : 47 Report #: [id number] THIS REPORT FOR: //name// [facility] ED Test Date: 2019-03-29 Test Time: 16:20:20 Pat Name: EPI MONTERO Department: Room: Gender: F Montessori Lead Teacher: JOELLE : 1945 Requested By: Willian Castro Order Number: [id number] MD: Seven Kingston Measurements Intervals Rowley Rate: 92 P: 54 ME: 136 QRS: -55 QRSD: 97 T: 47 QT: 382 QTc: 473 Interpretive Statements Sinus rhythm Abnormal R-wave progression, late transition Inferior infarct, old Compared to ECG 01/10/2019 10:27:51 Ventricular premature complex(es) no longer present Electronically Signed On 03-30-2019 13:03:40 BANDMILL OPERATOR by Seven Kingston [email or web address] <ELECTRONICALLY SIGNED> By: Seven Kingston MD, [facility] 03/30/19 1303 D: [id number] Seven Kingston MD, FACC /EPI
== END 2019-03-29 21:51 | disposition home or self-care (01) ==
LOC: ER 15:37
PROVIDERS: Emergency Medicine
DX: E87.5 Hyperkalemia (principal); R10.32 Left lower quadrant pain; I10 Essential (primary) hypertension; E11.9 Type 2 diabetes mellitus without complications; E78.5 Hyperlipidemia, unspecified; F03.90 Unspecified dementia, unspecified severity, without behavioral disturbance, psychotic disturbance, mood disturbance, and anxiety; F17.210 Nicotine dependence, cigarettes, uncomplicated; Z88.8 Allergy status to other drugs, medicaments and biological substances